=== PATIENT | male | born 1970 | race Caucasian/White ===

== ENCOUNTER 2017-07-08 19:55 | Emergency (ER) | payer BC, OTHER ==
[~2017-07-08] VITALS: Ht 175.3 cm; Wt 104.7 kg
[~2017-07-08 19:55] MED LIST: CEPH500C PO
[2017-07-08 20:28] VITALS: TEMP 36.5; Ht 175.3 cm; Wt 104.7 kg
--- NOTE | 2017-07-08 21:48 | EMERGENCY ROOM VISIT NOTE ---
History Report prepared by Vicky: Parker Huntley Under the Supervision of: Bola AbreuO. First contact with patient: 21:13 Chief Complaint: LEG PAIN,LEG INJURY Stated Complaint: SEVERE PAIN IN L LEG, BLOOD CLOT History of Present Illness The patient is a 47 year old male who presents to the Emergency Room with complaints of constant left calf pain beginning over a week ago. The patient states he cannot walk around or touch his leg without increasing his discomfort. He reports his pain will occasionally radiate from the middle of his calf to his left knee. He states there was a hard ball where his pain is located that resolved. The patient notes his feet have recently started to hurt after long days of work to the point where he cannot sleep. He states he will occasionally have numbness and tingling to his legs. The patient reports he has a history of varicose vein surgery a couple of years ago. He denies recent trauma, recent injury, changes in activity, pain above the knee, shortness of breath, nausea, vomiting, chest pain, palpitation, joint pain, joint swelling, changing his shoes, family history of blood clots, and personal history of blood clots. Source of History: patient Onset: over a week ago Position: other (left calf) Timing: constant Modifying Factors (Worsening): movement (walking), other (touching it) Associated Symptoms: + numbness, No chest pain, No SOB, No nausea, No vomiting Note: Associated symptoms: left knee pain, hard ball to the site of discomfort that resolved, pain to his feet after working a while, tingling to his leg Denies: recent trauma, recent injury, changes in activity, pain above the knee, palpitation, joint pain, joint swelling, changing his shoes, family history of blood clots, and personal history of blood clots. Review of Systems See HPI for pertinent positives & negatives. A total of 10 systems reviewed and were otherwise negative. Past Medical & Surgical Medical Problems: (1) Varicose vein of leg Family History Diabetes mellitus Social History Smoking Status: Never Smoker Marital Status: Housing Status: lives with family Occupation Status: employed Current/Historical Medications No Active Prescriptions or Reported Meds Allergies Coded Allergies: No Known Allergies (Unverified , 11/11/09) Physical Exam Vital Signs Date Time Temp Pulse Resp B/P (MAP) Pulse Ox O2 Delivery O2 Flow Rate FiO2 2/12/18 23:53 74 18 150/98 94 Room Air 07/08/17 23:05 69 20 126/86 94 Room Air 07/08/17 21:53 78 20 141/90 94 Room Air 07/08/17 20:28 36.5 82 18 140/94 96 Room Air Physical Exam GENERAL: alert, well appearing, well nourished, no distress, non-toxic EYE EXAM: normal conjunctiva, PERRL and EOM's grossly intact OROPHARYNX: no exudate, no erythema, lips, buccal mucosa, and tongue normal and mucous membranes are moist NECK: supple, no nuchal rigidity, no adenopathy, non-tender LUNGS: Clear to auscultation. Normal chest wall mechanics HEART: no murmurs, S1 normal and S2 normal ABDOMEN: abdomen soft, non-tender, normo-active bowel sounds, no masses, no rebound or guarding. BACK: Back is symmetrical on inspection and there is no deformity, no midline tenderness, no CVA tenderness. SKIN: no rashes and no bruising UPPER EXTREMITIES: upper extremities are grossly normal. LOWER EXTREMITIES: No pitting edema. Left calf tenderness. No palpable mass. Compartments soft. No rash or sores. No overlying erythema. NEURO EXAM: Normal sensorium, cranial nerves II-XII intact, normal speech, no weakness of arms, no weakness of legs. Medical Decision & Procedures ER Provider Diagnostic Interpretation: Radiology results have been interpreted by the radiologist and reviewed by me. L VENOUS DOPP LOWER EXT UNILAT HISTORY: 47 years-old Male calf pain acute left calf pain COMPARISON: None available TECHNIQUE: Multiple real-time sonographic images of the left lower extremity deep venous structures were obtained assessing grayscale appearance, color and spectral flow FINDINGS: There is normal flow, phasicity, compressibility and augmentation of the left lower extremity deep venous structures. IMPRESSION: No sonographic evidence of deep venous thrombosis. The above report was generated using voice recognition software. It may contain grammatical, syntax or spelling errors. Electronically signed by: Dash Medina M.D. 07/08/2017 11:06 PM Dictated Date/Time: 07/08/2017 11:05 PM ED Course 2133: The patient was evaluated in room B12B. A complete history and physical exam was performed. 2336: Upon reevaluation, the patient is feeling better. I discussed the findings and the treatment plan with the patient. He verbalizes agreement and understanding. The patient was discharged home. Medical Decision Differential diagnosis: Etiologies such as DVT, musculoskeletal, infection, joint effusion, trauma, lymphedema, idiopathic, CHF, as well as others were entertained. Patient low risk by well's criteria for DVT and ultrasound here negative. Patient with no other additional symptoms to suggest PE or more proximal thrombus. No symptoms or exam findings to suggest cellulitis, septic arthritis , Lyme's disease, other rheumatologic disorder. No evidence of lower extremity edema, no evidence of trauma. Discussed with patient follow-up with family doctor as a precaution and possible need for repeat ultrasound as an outpatient. Discussed symptoms to watch and return for, he verbalized understanding was agreeable with plan. Discussed in the short-term over-the- counter medications to help with pain, and adequate hydration. Medication Reconcilliation Current Medication List: was personally reviewed by me Blood Pressure Screening Patient's blood pressure: Normal blood pressure Blood pressure disposition: Did not require urgent referral Impression Primary Impression: Leg pain, left Scribe Attestation The scribe's documentation has been prepared under my direction and personally reviewed by me in its entirety. I confirm that the note above accurately reflects all work, treatment, procedures, and medical decision making performed by me. Departure Information Dispostion Home / Self-Care Prescriptions No Active Prescriptions or Reported Meds Referrals Prashant Perez M.D. (PCP) Forms HOME CARE DOCUMENTATION FORM, IMPORTANT VISIT INFORMATION Patient Instructions My [facility] Additional Instructions Please call and follow-up with your family doctor. If your pain persists you may need another ultrasound in 5-7 days. You may use tylenol/ibuprofen for pain. If you develop increased pain, rash/sores on the leg, swelling of the leg , fevers/chills, chest pain, trouble breathing, vomiting, numbness/tingling, discoloration of the foot, or you have any other new or concerning symptoms, please return to the emergency room.
--- NOTE | 2017-07-08 23:07 | DIAGNOSTIC IMAGING REPORT ---
L VENOUS DOPP LOWER EXT UNILAT HISTORY: 47 years-old Male calf pain acute left calf pain COMPARISON: None available TECHNIQUE: Multiple real-time sonographic images of the left lower extremity deep venous structures were obtained assessing grayscale appearance, color and spectral flow FINDINGS: There is normal flow, phasicity, compressibility and augmentation of the left lower extremity deep venous structures. IMPRESSION: No sonographic evidence of deep venous thrombosis. The above report was generated using voice recognition software. It may contain grammatical, syntax or spelling errors. Electronically signed by: Dash Medina M.D. 07/08/2017 11:06 PM Dictated Date/Time: 07/08/2017 11:05 PM
[2017-07-08 23:53] VITALS: BP 150/98; PULSE 74; O2SAT 94
== END 2017-07-09 00:02 | disposition home or self-care (01) ==
LOC: C.EDB 19:57
DX: M79.605 Pain in left leg (principal); R20.0 Anesthesia of skin; R20.2 Paresthesia of skin; Z87.898 Personal history of other specified conditions; Z83.3 Family history of diabetes mellitus